=== PATIENT | male | born 1980 | race African-American/Black ===

== ENCOUNTER 2017-10-24 07:08 | Emergency (ER) | payer OTHER, BC ==
[~2017-10-24] VITALS: Ht 175.3 cm; Wt 81.9 kg
[2017-10-24 07:14] VITALS: TEMP 97.8
[2017-10-24] MEDS ORDERED: [UNRECOGNIZED DRUG - REMARK] (07:23)
[2017-10-24] MEDS ORDERED: NORCO 325 MG-51 TAB PO (09:26)
[2017-10-24] MEDS ORDERED: CEPHALEXIN500 M1 PO (09:26)
[2017-10-24 10:03] VITALS: BP 164/102; PULSE 58
== END 2017-10-24 10:05 | disposition home or self-care (01) ==
LOC: COL.ER 07:08
DX: S67.190A Crushing injury of right index finger, initial encounter (principal); S67.192A Crushing injury of right middle finger, initial encounter; S62.630B Displaced fracture of distal phalanx of right index finger, initial encounter for open fracture; S62.632B Displaced fracture of distal phalanx of right middle finger, initial encounter for open fracture; F17.210 Nicotine dependence, cigarettes, uncomplicated; W23.0XXA Caught, crushed, jammed, or pinched between moving objects, initial encounter; Y92.89 Other specified places as the place of occurrence of the external cause; Y99.0 Civilian activity done for income or pay